=== PATIENT | female | born 1945 | race Caucasian/White ===

== ENCOUNTER 2022-05-17 03:59 | Emergency (ER) | payer MEDICARE ==
[~2022-05-17] VITALS: Ht 167.6 cm; Wt 104.5 kg
[2022-05-17 06:33] VITALS: BP 170/94
== END 2022-05-17 06:38 | disposition home or self-care (01) ==
LOC: ER 04:00
DX: S06.5X9A Traumatic subdural hemorrhage with loss of consciousness of unspecified duration, initial encounter (principal); R42 Dizziness and giddiness; E78.00 Pure hypercholesterolemia, unspecified; I10 Essential (primary) hypertension; F17.200 Nicotine dependence, unspecified, uncomplicated; Z98.890 Other specified postprocedural states; Z88.2 Allergy status to sulfonamides; W19.XXXA Unspecified fall, initial encounter; Y93.89 Activity, other specified; Y92.89 Other specified places as the place of occurrence of the external cause; Y99.8 Other external cause status
CPT/HCPCS: 70450; 99284